=== PATIENT | male | born 1995 | race Caucasian/White ===

== ENCOUNTER 2021-03-11 14:53 | Emergency (ER) | payer OTHER | END 2021-03-11 16:24 | disposition left against medical advice (07) | LOC: ER1 14:53 | DX: Z53.21 Procedure and treatment not carried out due to patient leaving prior to being seen by health care provider (principal) ==

== ENCOUNTER 2021-08-28 12:00 | Emergency (ER) | payer BC ==
[2021-08-28 13:09] LABS: HEMOGLOBIN 16.5 gm/dl (14.0-17.5); RED BLOOD COUNT 5.75 M/UL (4.20-5.50); WHITE BLOOD COUNT 4.9 K/UL (4.5-11.0)
[2021-08-28 14:13] LABS: BUN/CREATININE RATIO 14 (0-10)
== END 2021-08-28 15:40 | disposition home or self-care (01) ==
LOC: ER1 12:00
PROVIDERS: Emergency Medicine
DX: R00.2 Palpitations (principal); R00.0 Tachycardia, unspecified
CPT/HCPCS: 71045; 80053; 82550; 82553; 83874; 83880; 84484; 85025; 85652; 86140; 93005; 96374; 99285; J1885